=== PATIENT | female | born 1970 | race Caucasian/White ===

== ENCOUNTER 2018-09-15 19:43 | Emergency (ER) | payer OTHER, SELFPAY ==
--- NOTE | 2018-09-15 20:32 | RAD ---
CHEST TWO VIWES: 09/15/2018 HISTORY: Injury. Trauma. Pain. COMPARISON: None. FINDINGS: The lungs are clear. The heart and mediastinal contour is unremarkable. IMPRESSION: No acute findings. POS: [facility]
[2018-09-15 20:43] LABS: #Lymphocytes 1.7 thou/uL (1.20-3.40); #Monocytes 0.5 thou/uL (0.11-0.59); #Neutrophils 9.7 thou/uL (1.40-6.50); %Basophils 0.4 % (0.0-1.0); %Eosinophils 0.4 % (0.0-10.0); %Lymphocytes 13.8 % (21.0-51.0); %Monocytes 4.2 % (0.0-10.0); %Neutrophils 81.2 % (42.0-75.0); Hemoglobin 13.5 g/dL (12.0-16.0); Mean Corpuscular HGB CONC 33.6 g/dL (32.0-36.0); Mean Corpuscular Hemoglobin 30.3 pg (27.0-31.0); Mean Corpuscular Volume 90.1 fL (78.0-98.0); Mean Platelet Volume 9.7 fL (7.4-10.4); Platelet Count 239 thou/uL (130-400); RBC Distribution Width 11.4 % (11.5-14.5); Red Blood Cell (RBC) Count 4.47 mill/uL (4.20-5.40)
--- NOTE | 2018-09-15 20:45 | RAD ---
RIGHT KNEE FOUR VIEWS: 09/15/2018 HISTORY: Pain. Swelling. Trauma. COMPARISON: None. FINDINGS: No knee joint effusion, displaced fracture, or evidence of dislocation. There is soft tissue swellin g anterior to the patella and region of the patellar tendon. IMPRESSION: Anterior soft tissue swelling with no associated fracture or dislocation. POS: [facility]
--- NOTE | 2018-09-15 20:46 | RAD ---
LEFT KNEE FOUR VIEWS: 09/15/2018 HISTORY: Knee pain and swelling. Trauma. COMPARISON: None. FINDINGS: No knee joint effusion, displaced fracture, or evidence of dislocation seen. IMPRESSION: No acute osseous abnormality. POS: [facility]
--- NOTE | 2018-09-15 20:47 | RAD ---
LEFT TIBIA AND FIBULA FRONTAL AND LATERAL IMAGIN09/15/2018 HISTORY: Injury. Trauma. Pain. COMPARISON: None. FINDINGS: There is enthesophyte formation at the origin of the plantar aponeurosis. There is no displaced frac ture or evidence of dislocation. IMPRESSION: No acute findings. POS: [facility]
[2018-09-15 21:06] LABS: ALT (SGPT) 15 U/L (8-55); AST (SGOT) 22 U/L (5-34); Albumin 4.2 g/dL (3.5-5.0); Alkaline Phosphatase 48 U/L (40-150); Anion Gap 13 mmol/L (10-20); BUN (Urea Nitrogen) 12 mg/dL (7.0-18.7); Bilirubin, Total 0.3 mg/dL (0.2-1.2); Calc. Creatinine Clearance 0 mL/min (70-130); Calcium 9.5 mg/dL (7.8-10.44); Carbon Dioxide 23 mmol/L (22-29); Chloride 107 mmol/L (98-107); Estimated GFR-MDRD 71; Globulin 2.8 g/dL (2.4-3.5); Glucose 96 mg/dL (70-105); Lipase 28 U/L (8-78); Potassium 3.9 mmol/L (3.5-5.1); Sodium 139 mmol/L (136-145)
[2018-09-15] MEDS ORDERED: Adacel (T-DAP) 0.5 ML VIAL ONE (21:38)
== END 2018-09-15 21:37 | disposition home or self-care (01) ==
LOC: ERS 19:43
DX: S80.212A Abrasion, left knee, initial encounter (principal); S80.211A Abrasion, right knee, initial encounter; F32.9 Major depressive disorder, single episode, unspecified; Z79.899 Other long term (current) drug therapy; V43.52XA Car driver injured in collision with other type car in traffic accident, initial encounter
CPT/HCPCS: 36415; 71046; 80053; 83690; 85025; 90715; G0390